=== PATIENT | female | born 1990 | race African-American/Black ===

== ENCOUNTER 2017-06-15 14:41 | Emergency (ER) | payer OTHER, MEDICAID ==
[2017-06-15 15:13] VITALS: BP 145/72
--- NOTE | 2017-06-15 15:58 | ERNOTE ---
Date of Service: 06/15/17 Time Seen by Provider: 06/15/17 15:29 Stated Complaint: TOOTH PAIN AND COLD Presenting Symptoms:: cough Source: patient, RN notes reviewed Exam Limitations: no limitations Immunizations: IMMUNIZATION HX Immunizations Up to Date Yes History of Influenza Vaccine Yes Hx Pneumococcal Vaccination No Allergies/Adverse Reactions: Allergies sulfamethoxazole [From Bactrim] Allergy (Mild, Verified 06/15/17 15:08) Hives trimethoprim [From Bactrim] Allergy (Mild, Verified 06/15/17 15:08) Hives guaifenesin [From Robitussin] Adverse Reaction (Verified 03/01/16 21:01) Home Medications: HOME MEDICATIONS Albuterol Sulfate 06/15/17 [Last Taken Unknown] - History of Present Ilness Narrative: 27 year old female presents with a cough that has been ongoing for 2 weeks. She reports that it is making her asthma worse. She has been using an albuterol inhaler. She denies fevers. She also complains of dental pain in her left lower jaw that has been present for some time. She states she has not been taking anything for pain, although her [employer] record shows she was prescribed Tramadol at [facility] a week ago. She has a dentist appointment but it is not until next month. She is already on penicillin. Prior Treatment: Reports: recently seen, treated by physician, currently on antibiotics Review of Systems - Review of Systems Constitutional: Absent: fever, chills EYE: Absent: eye pain, vision changes ENT: Absent: ear pain, nose congestion, nasal drainage, sore throat Respiratory: Present: cough. Absent: shortness of breath, wheezing Cardiology: Absent: chest pain, syncope Gastrointestinal/Abdominal: Absent: nausea, abdominal pain Genitourinary: Present: no symptoms reported Musculoskeletal: Absent: muscle pain, neck pain Skin: Absent: rash, lesions, lumps Neurological: Absent: headache, dizziness/light-headedness Endocrine: Present: no symptoms reported Hematologic/Lymphatic: Present: no symptoms reported Psych: Present: no symptoms reported - Patient's Past Medical History Patient History - Medical: Obesity Patient History - Cardiac/Respiratory: Asthma Patient History - Cancer: No Hx of Cancer Patient History - Surgical Procedures: Orthopedic Patient History - Other: None - Social History Living Situations: home Abuse History: No History of abuse Psych History: No pertinent hx Smoking Status: Never smoker Have you smoked in the past 12 months: No Do you dip or chew tobacco: No Alcohol Use: none Drug Use: none - Immunizations Immunizations Up to Date: Yes Hx Pneumococcal Vaccination: No History of Influenza Vaccine: Yes Physical Exam - Physical Exam General Appearance: Present: alert, no apparent distress, obese Head Exam: Present: normal inspection, tenderness - left mandible. Absent: swelling Ears, Nose, Throat: Present: normal except - - several teeth with decay, several broken teeth, normal pharynx Neck: Present: normal inspection, nontender, supple. Absent: lymphadenopathy (R ), lymphadenopathy (L) Respiratory: Present: no respiratory distress, normal breath sounds, no accessory muscle use, lungs clear Cardiovascular/Chest: Present: regular rate, rhythm, no murmur Extremity Exam: Present: normal inspection, normal range of motion Neurological Exam: Present: alert, oriented, normal mood/affect, no motor/ sensory deficits Skin Exam: Present: normal color, warm/dry ED Progress - Vital Signs Patient's Vital Signs:: I have reviewed the patient's vital signs. Vital Signs: Vital Signs 06/15/17 15:06 Temperature 36.9 C Pulse Rate 83 Respiratory 17 Rate Blood Pressure 145/72 O2 Sat by Pulse 100 Oximetry - Progress/Reassessment Chief Complaint: Upper Respiratory Symptoms Progress:: Unchanged Departure Clinical Impression: Bronchitis, Pain, dental - Departure Disposition: Home Follow Up Needed Condition: Stable Instructions: Dental Caries, [id number], Form - Excuse from Work, School, or Physical Activity, Acute Bronchitis Additional Instructions: Continue using your inhaler as directed See a dentist as soon as possible
== END 2017-06-15 16:15 | disposition home or self-care (01) ==
LOC: ER 14:41
DX: K08.89 Other specified disorders of teeth and supporting structures; J40 Bronchitis, not specified as acute or chronic